=== PATIENT | female | born 1980 | race Two or more races ===

== ENCOUNTER 2023-01-01 08:01 | Emergency (ER) | payer MEDICAID, OTHER ==
[~2023-01-01] VITALS: Ht 160 cm; Wt 73.6 kg
[2023-01-01 09:09] VITALS: BP 126/90
== END 2023-01-01 10:35 | disposition home or self-care (01) ==
LOC: ER 08:01
DX: S30.1XXA Contusion of abdominal wall, initial encounter (principal); N20.0 Calculus of kidney; Y04.2XXA Assault by strike against or bumped into by another person, initial encounter; Y93.89 Activity, other specified; Y92.89 Other specified places as the place of occurrence of the external cause; Y99.8 Other external cause status
CPT/HCPCS: 74176